=== PATIENT | female | born 1945 | race Caucasian/White ===

== ENCOUNTER 2021-06-04 07:56 | Day surgery (SDC) | payer OTHER ==
[2021-06-01 11:55] VITALS: BMI 25.7
[2021-06-04 09:22] VITALS: TEMP 97.8
[2021-06-04 09:50] VITALS: BP 132/60; PULSE 52
== END 2021-06-04 10:10 | disposition home or self-care (01) ==
LOC: FASU-ENDO 07:56
PROVIDERS: ATTEND Internal Medicine Gastroenterology
PROC: 0DJD8ZZ Inspection of Lower Intestinal Tract, Via Natural or Artificial Opening Endoscopic (ICD-10-PCS; principal; 2021-06-04 08:54)
DX: Z12.11 Encounter for screening for malignant neoplasm of colon (principal)